=== PATIENT | male | born 1955 | race Caucasian/White ===

== ENCOUNTER 2022-12-28 09:38 | Emergency (ER) | payer MEDICARE, SELFPAY ==
[2022-12-28] VITALS (10 sets, daily range): BP systolic 135–185; BP diastolic 63–97; PULSE 75–120; RESP 15–25; TEMP 37.2; O2SAT 96–98; BMI 30.2
--- NOTE | 2022-12-28 09:49 | DI.RAD.S_ITS ---
PROCEDURE: XR CHEST 1V INDICATIONS: Shortness of breath TECHNIQUE: One view of the chest was acquired. COMPARISON: None. FINDINGS: Surgical changes and devices: None. Lungs and pleura: Lungs are clear. No pleural effusions or pneumothorax. Mediastinum: Mediastinal contours appear normal. Heart size is normal. Bones and chest wall: No suspicious bony lesions. Overlying soft tissues appear unremarkable. IMPRESSION: No acute cardiopulmonary process. Dictated by: Jayant Esquivel M.D. on 12/28/2022 at 10:54 Approved by: Jayant Esquivel M.D. on 12/28/2022 at 10:54
[2022-12-28 10:04] LABS: Add Manual Diff / Slide Review NO; Basophils Absolute Auto 100 /uL (0-100); Basophils Percent Auto 1.1 % (0-2); Eosinophils Absolute Auto 100 /uL (0-450); Hematocrit 41.3 % (41-53); Hemoglobin 14.2 g/dL (13.5-17.5); Lymphocytes Absolute Auto 2300 /uL (1100-4500); Lymphocytes Percent Auto 37.2 % (25-40); Mean Corpuscular HGB Conc 34.5 % (30-36); Mean Corpuscular Hemoglobin 31.4 PG (26-34); Mean Corpuscular Volume 91.2 fL (80-100); Monocytes Absolute Auto 800 /uL (0-900); Monocytes Percent Auto 12.1 % (3-14); Neutrophils Absolute Auto 3000 /uL (1500-7000); Neutrophils Percent Auto 47.6 % (50-75); Platelet Count 249 X10^3/uL (150-400); Red Blood Cell Count 4.53 X10^6/uL (4.5-5.9); White Blood Cell Count 6.3 X10^3/uL (4.5-11.0)
[2022-12-28 10:13] LABS: Prothrombin Time 11.4 SECONDS (10.1-12.7)
[2022-12-28 10:18] LABS: Alanine Aminotransferase 101 IU/L (<50); Albumin 4.1 g/dL (3.5-5.0); Albumin Globulin Ratio 1.2 (1.0-2.8); Alkaline Phosphatase 91 U/L (38-126); Aspartate Aminotransferase 118 IU/L (17-59); BUN Creatinine Ratio 13.3 (6-22); Bilirubin Total 1.1 mg/dL (0.2-1.3); Blood Urea Nitrogen 11 mg/dL (9-20); Calcium 8.9 mg/dL (8.4-10.2); Carbon Dioxide 25 mmol/L (22-32); Chloride 102 mmol/L (98-107); Estimated Glomerular Filt Rate > 60 mL/min (>60); Globulin 3.5 g/dL (1.7-4.1); Glucose 136 mg/dL (80-110); HEMOLYSIS < 15 (0-50); Potassium 4.6 mmol/L (3.4-5.1); Sodium 137 mmol/L (137-145); Total Protein 7.6 g/dL (6.3-8.2)
[2022-12-28 10:19] LABS: Lactate (Lactic Acid) 1.5 mmol/L (0.7-2.1)
[2022-12-28 10:29] LABS: NT-proBNP (BNP-Adult 18+) 319 pg/mL (<125); Troponin I < 0.012 ng/mL (0.01-0.034)
--- NOTE | 2022-12-28 12:49 | ED_ITS ---
HPI - Extremity Problem General Chief complaint: Extremity Problem,Nontraumatic Stated complaint: swelling in both feet,ankle and calf Time Seen by Provider: 12/28/22 11:26 Source: patient Mode of arrival: Ambulatory History of Present Illness HPI Narrative: 67-year-old male with history of insulin-dependent diabetes, hypertension, dyslipidemia and a muscle relaxer and ibuprofen intermittently. Patient presents with swelling of his bilateral lower extremities he states he is had issues on and off for 8 years but has been worse over the last few months. He went to an urgent care, referred to another facility and then ultimately landed here. Patient states he has a primary care but they are not starting until January 12 he has not appointment in place. Patient denies any chest pain or pressure no shortness of breath, no orthopnea, no fevers or chills. No nausea, no vomiting no diarrhea constipation. No urinary symptoms. Patient has not been on water pills in the past. He notes his sister is on chlorthalidone. Patient notes only surgeries were right knee scope. No known drug allergies. No tobacco he drinks 5 alcoholic drinks daily, uses THC no other illicit. Patient also notes he is had a little bit of weight loss and he has dropped his daily insulin dosing lower continues to be about 80-100 with his morning sugars. We will send a hemoglobin A1c but labs today appear appropriate with a glucose of 136. Related Data Previous Rx's Medication Instructions Recorded furosemide 40 mg tablet (Lasix) 40 mg PO DAILY #7 tabs 12/28/22 Allergies Allergy/AdvReac Type Severity Reaction Status Date / Time No Known Drug Allergies Allergy Verified 12/28/22 09:41 Review of Systems Review of Systems ROS Unobtainable: All systems reviewed & are unremarkable except as noted in HPI and below Patient History Social History Smoking Status: Unknown if ever smoked Smoking Status: Unknown if ever smoked alcohol intake frequency: 3 or more drinks per day Substance Use Type: marijuana Exam Narrative Exam Narrative: GENERAL: Alert and oriented x three, male in no acute distress. HEENT: Head normocephalic, atraumatic, EOMI, pupils reactive, face symmetric, moist mucous membranes NECK: Supple, full range of motion CARDIOVASCULAR: Regular rate and rhythm without murmurs, rubs or gallops. No JVD. RESPIRATORY: Breath sounds equal bilaterally, no wheezes rales or rhonchi. ABDOMEN: Soft, nontender. Normoactive bowel sounds all 4 quadrants. No guarding or rebound, rigidity, no mass : No CVA tenderness EXTREMITIES: Normal range of motion, mild bilateral lower extremity edema edema. Neurovascularly intact NEUROLOGICAL: Cranial nerves II through XII grossly intact. Moving all extremities SKIN: Warm, dry, no petechiae, no rashes or lesions. Initial Vital Signs Initial Vital Signs: Vital Signs Temperature 99.0 F 12/28/22 09:41 Pulse Rate 120 H 12/28/22 09:41 Respiratory Rate 16 12/28/22 09:41 Blood Pressure 185/97 H 12/28/22 09:41 Pulse Oximetry 98 12/28/22 09:41 Oxygen Delivery Method Room Air 12/28/22 09:41 Course Orders Ordered: ED Orders 12/28/22 09:49 XR chest 1V Stat EKG-12 Lead Stat 12/28/22 09:55 Complete Blood Count AUTO DIFF Stat Comprehensive Metabolic Panel Stat Hemoglobin A1C% w Est Avg Glu Stat Lactate (Lactic Acid) Stat NT-proBNP (BNP-Adult 18+) Stat Prothrombin Time INR Stat Troponin I Stat Vital Signs Vital signs: Vital Signs - 8 hr 12/28/22 09:41 12/28/22 10:02 12/28/22 10:04 Temperature 99.0 F Pulse Rate 120 H 104 H Respiratory Rate 16 24 Blood Pressure 185/97 H 143/67 H Pulse Oximetry 98 Oxygen Delivery Method Room Air 12/28/22 10:04 12/28/22 10:30 12/28/22 10:30 Temperature Pulse Rate 104 H 95 H Respiratory Rate 25 H 21 Blood Pressure 161/79 H Pulse Oximetry 97 97 Oxygen Delivery Method 12/28/22 11:00 12/28/22 11:00 12/28/22 11:30 Temperature Pulse Rate 92 H Respiratory Rate 22 Blood Pressure 147/81 H 135/63 Pulse Oximetry 98 Oxygen Delivery Method 12/28/22 11:30 12/28/22 12:00 12/28/22 12:00 Temperature Pulse Rate 86 82 Respiratory Rate 15 22 Blood Pressure 149/87 H Pulse Oximetry 98 98 Oxygen Delivery Method 12/28/22 12:30 12/28/22 12:30 Temperature Pulse Rate 75 Respiratory Rate 16 Blood Pressure 142/67 H Pulse Oximetry 97 Oxygen Delivery Method MDM - Extremity (Nontraumatic) Lab Data 12/28/22 09:55 12/28/22 09:55 Labs: Lab Results 12/28/22 12/28/22 12/28/22 Range/Units 09:55 09:55 09:55 WBC 6.3 (4.5-11.0) X10^3/uL RBC 4.53 (4.5-5.9) X10^6/uL Hgb 14.2 (13.5-17.5) g/dL Hct 41.3 (41-53) % MCV 91.2 (80-100) fL MCH 31.4 (26-34) PG MCHC 34.5 (30-36) % RDW 14.0 (11.6-14.8) % Plt Count 249 (150-400) X10^3/uL Neut % (Auto) 47.6 L (50-75) % Lymph % (Auto) 37.2 (25-40) % Upson % (Auto) 12.1 (3-14) % Eos % (Auto) 2.0 (2-4) % Baso % (Auto) 1.1 (0-2) % Neut # (Auto) 3000 (1710-0047) /uL Lymph # (Auto) 2300 (4444-0148) /uL Upson # (Auto) 800 (0-900) /uL Eos # (Auto) 100 (0-450) /uL Baso # (Auto) 100 (0-100) /uL PT 11.4 (10.1-12.7) SECONDS INR 1.0 (0.9-1.3) Sodium 137 (137-145) mmol/L Potassium 4.6 (3.4-5.1) mmol/L Chloride 102 (98-107) mmol/L Carbon Dioxide 25 (22-32) mmol/L BUN 11 (9-20) mg/dL Creatinine 0.83 (0.66-1.25) mg/dL Estimated GFR > 60 (>60) mL/min BUN/Creatinine Ratio 13.3 (6-22) Glucose 136 H (80-110) mg/dL Hemoglobin A1c (4.0-6.0) % Lactate (0.7-2.1) mmol/L Calcium 8.9 (8.4-10.2) mg/dL Total Bilirubin 1.1 (0.2-1.3) mg/dL AST 118 H (17-59) IU/L ALT 101 H (<50) IU/L Alkaline Phosphatase 91 (38-126) U/L Troponin I < 0.012 (0.01-0.034) ng/mL NT-Pro-B Natriuret Pep 319 H (<125) pg/mL Total Protein 7.6 (6.3-8.2) g/dL Albumin 4.1 (3.5-5.0) g/dL Globulin 3.5 (1.7-4.1) g/dL Albumin/Globulin Ratio 1.2 (1.0-2.8) 12/28/22 12/28/22 Range/Units 09:55 09:55 WBC (4.5-11.0) X10^3/uL RBC (4.5-5.9) X10^6/uL Hgb (13.5-17.5) g/dL Hct (41-53) % MCV (80-100) fL MCH (26-34) PG MCHC (30-36) % RDW (11.6-14.8) % Plt Count (150-400) X10^3/uL Neut % (Auto) (50-75) % Lymph % (Auto) (25-40) % Upson % (Auto) (3-14) % Eos % (Auto) (2-4) % Baso % (Auto) (0-2) % Neut # (Auto) (3319-7480) /uL Lymph # (Auto) (4362-4800) /uL Upson # (Auto) (0-900) /uL Eos # (Auto) (0-450) /uL Baso # (Auto) (0-100) /uL PT (10.1-12.7) SECONDS INR (0.9-1.3) Sodium (137-145) mmol/L Potassium (3.4-5.1) mmol/L Chloride (98-107) mmol/L Carbon Dioxide (22-32) mmol/L BUN (9-20) mg/dL Creatinine (0.66-1.25) mg/dL Estimated GFR (>60) mL/min BUN/Creatinine Ratio (6-22) Glucose (80-110) mg/dL Hemoglobin A1c 5.8 (4.0-6.0) % Lactate 1.5 (0.7-2.1) mmol/L Calcium (8.4-10.2) mg/dL Total Bilirubin (0.2-1.3) mg/dL AST (17-59) IU/L ALT (<50) IU/L Alkaline Phosphatase (38-126) U/L Troponin I (0.01-0.034) ng/mL NT-Pro-B Natriuret Pep (<125) pg/mL Total Protein (6.3-8.2) g/dL Albumin (3.5-5.0) g/dL Globulin (1.7-4.1) g/dL Albumin/Globulin Ratio (1.0-2.8) Imaging Data Chest x-ray: Radiologist's Impression: [address] [address] XRay Report Signed Patient: Amanda Grace MR#: [id number] : 1955 Acct:[id number] Age/Sex: 67 / M Date of Service: 12/28/22 Loc: ED Accession Number: [id number] ?? Procedure: XR chest 1V Ordering Provider: Kristin Orourke D.O. PROCEDURE:? XR CHEST 1V ? INDICATIONS:? Shortness of breath ? TECHNIQUE:? One view of the chest was acquired.? ? COMPARISON:? None. ? FINDINGS:? ? Surgical changes and devices:? None.? ? Lungs and pleura:? Lungs are clear.? No pleural effusions or pneumothorax.? ? Mediastinum:? Mediastinal contours appear normal.? Heart size is normal.? ? Bones and chest wall:? No suspicious bony lesions.? Overlying soft tissues appear unremarkable.? ? IMPRESSION:? No acute cardiopulmonary process. ? ? Dictated by: Jayant Esquivel M.D. on 12/28/2022 at 10:54 ? ? Approved by: Jayant Esquivel M.D. on 12/28/2022 at 10:54?? ECG Data Attestation EKG: I personally reviewed and interpreted this ECG as follows: Interpretation: Sinus tachycardia rate 113 NC 170 QRS of [address] QTC [address] No acute [address] elevation depression. MDM Narrative Medical decision making narrative: This is a 67-year-old male who presents with complaint of bilateral lower extremity swelling gradually over time. Patient has some cardiac risk factors he is had no chest pain or pressure no orthopnea. Just bilateral generalized swelling in his extremities. No other high-risk factors other than chronic alcohol use. CBC, CMP do not show acute changes. AST ALT are 118 and 101 troponins negative BNP is 310. Chest x-ray is negative with no pulmonary edema or acute changes. Patient's EKG shows tachycardia but no other acute changes. Patient and I discussed short prescription for diuretic, follow-up with primary care as this is been longstanding issue. Patient also notes his insulin has been decreased over time secondary to lowering sugars. Patient's workup is overall reassuring does not appear to be in florid heart failure do recommend that patient follow up for cardiac workup with his primary care but he notes he is had some longstanding changes that are worsening gradually over time he is not normally on a diuretic and 1 was prescribed for the short term. Patient's A1c is 5.8. Discharge Plan Departure Patient Disposition: Home Clinical Impression: Bilateral lower extremity edema Instructions: DI for Dependent Edema Activity Restrictions/Additional Instructions: Please follow-up with primary care, if you are having persistent swelling of your lower extremities they may do some additional cardiac workup or ECHO. I did order and send a [id number] for share with your primary care. Take Lasix once daily until gone. Prescription sent to [facility] in [place]. Please return for new or worsening chest pain, swelling, shortness of breath, lightheadedness or passing out, persistent vomiting or other new or concerning changes. Prescriptions: New furosemide [Lasix] 40 mg tablet 40 mg PO DAILY Qty: 7 0RF Stand Alone Forms: Patient Portal/API
[2022-12-28 13:34] LABS: Hemoglobin A1C% w Est Avg Glu 5.8 % (4.0-6.0)
== END 2022-12-28 13:43 | disposition home or self-care (01) ==
PROVIDERS: Emergency Provider Emergency Medicine
DX: R60.0 Localized edema (principal); R06.02 Shortness of breath; R00.0 Tachycardia, unspecified
CPT/HCPCS: 36415; 71045; 80053; 83036; 83605; 83880; 84484; 85025; 85610; 93005; 99283; 99284

== ENCOUNTER → 2023-01-08 09:08 | Outpatient (CLI) | payer MEDICARE, SELFPAY ==
--- NOTE | 2023-01-08 | DI.US.S_ITS ---
PROCEDURE: US ABDOMEN LIMITED INDICATIONS: ELEVATED LIVER FUNCTION TESTS TECHNIQUE: Real-time focused scanning was performed of the abdomen, with image documentation. COMPARISON: None. FINDINGS: Visualized pancreas is unremarkable sonographically. The liver is echogenic. Liver length of 16.0 cm. No gallstones, gallbladder wall thickening, or sonographic Rivers sign. Extrahepatic bile duct measures 9 mm. No intrahepatic ductal dilation demonstrated. IMPRESSION: 1. The liver is echogenic, a nonspecific finding commonly seen in the setting of steatosis. 2. Mild dilation of the extrahepatic bile duct without intrahepatic biliary ductal dilation demonstrated. This finding is of uncertain etiology or clinical significance. Correlation with the patient's symptoms and laboratory markers for evidence of biliary obstruction may be helpful. If clinically indicated, MRCP with and without contrast and/or endoscopic evaluation could be performed for further evaluation. Dictated by: Allen Bowie M.D. on 01/08/2023 at 10:08 Approved by: Allen Bowie M.D. on 01/08/2023 at 10:40
== END ==
PROVIDERS: PCP Family Medicine; Referring Provider Family Medicine; Visit Provider Family Medicine
DX: R79.89 Other specified abnormal findings of blood chemistry (principal); R60.0 Localized edema; K83.8 Other specified diseases of biliary tract
CPT/HCPCS: 76705

== ENCOUNTER → 2023-01-18 16:06 | Outpatient (CLI) | payer MEDICARE, SELFPAY ==
--- NOTE | 2023-01-18 16:08 | DI.ECHO.S_ITS ---
[facility]---------+ [facility] +---------+ : : [address] : : : : [id number] : : : : Phone: [phone] Echocardiogram Report + + :Name: KAILASH GOINS Study Date: 01/18/2023 Height: 74 in : :[facility] ReadingLocation: Weight: 222 lb : : Gender: Male BSA: 2.3 m2 : :: 1955 Age: 67 yrs BP: 140/84 mmHg: :Reason For Study: Leg Swelling : :Ordering Physician: LORA STOVER Performed By: Kiara Lowery : :Referring: LORA STOVER : + + Interpretation Summary This is a technically difficult study enhanced with Definity echocontrast. Normal sinus rhythm. Normal LV size; mild concentric LVH; normal wall motion and LV systolic function. EF is 50-55%. Normal chamber sizes. No significant valvular abnormalities. No prior study available for comparison. Procedure: A two-dimensional transthoracic echocardiogram with color flow and Doppler was performed. The study quality was technically adequate. There is no prior echocardiogram noted for this patient. A contrast injection of Definity was performed to improve assessment of LV function. The patient was in normal sinus rhythm during the exam. The patient had occasional PVCs during the exam. Left Ventricle: The left ventricle is normal in size. The ejection fraction is estimated to be 50-55%. Right Ventricle: The right ventricle is normal in size and function. Atria: The left atrial size is normal. Right atrial size is normal. There is no Doppler evidence for an interatrial shunt. Mitral Valve: The mitral valve is normal. There is no mitral valve stenosis. There is mild mitral regurgitation. Aortic Valve: The aortic valve is trileaflet. The aortic valve opens well. There is no aortic valve stenosis. There is trace aortic regurgitation. Tricuspid Valve: The tricuspid valve is normal. There is no tricuspid stenosis. There is trace tricuspid regurgitation. Pulmonic Valve: The pulmonic valve is not well visualized. There is no pulmonic valvular stenosis. There is trace pulmonic regurgitation. Great Vessels: The aortic root is borderline dilated. The ascending aorta is normal in size. The pulmonary artery is normal size. The IVC is of normal diameter and collapses greater than 50% with a sniff. This suggests a low right atrial pressure of 3 mm Hg. Pericardium/ Pleura There is no pericardial effusion. There is no pleural effusion. MMode/2D Measurements & Calculations LVIDd: 5.2 cm LVOT diam: 2.6 cm LVIDs: 2.6 cm Ao root diam: 3.8 cm FS: 50.0 % asc Aorta Diam: 3.5 cm IVSd: 1.2 cm LVPWd: 1.1 cm LV jain. diameter/BSA (cm/m^2): 2.3 LV sys. diameter/BSA (cm/m^2): 1.1 LA A2 area: 20.3 cm2 RA long axis: 5.1 cm LA A4 area: 13.4 cm2 RA area: 13.8 cm2 LA length (vol): 5.5 cm RA vol: 31.4 ml LA vol: 42.0 ml RA : 13.8 ml/m2 LA vol index: 18.5 ml/m2 RVD1 (basal): 3.9 cm LVLs ap4: 6.8 cm TAPSE_phl: 2.5 cm Doppler Measurements & Calculations Ao V2 max: 116.8 cm/sec LVOT Max Roberto: 82.7 cm/sec Ao V2 mean: 81.4 cm/sec LV V1 max P.7 mmHg Ao max P.0 mmHg LV V1 VTI: 14.9 cm Ao mean P.0 mmHg DON(I,D): 3.6 cm2 Ao V2 VTI: 22.3 cm DON(V,D): 3.8 cm2 sev ratio: 0.67 DON indexed to BSA (cm^2/m^2): 1.6 MV E max roberto: 59.3 cm/sec PA V2 max: 89.6 cm/sec MV A max rboerto: 50.6 cm/sec PA V2 mean: 60.3 cm/sec MV E/A: 1.2 PA mean P.0 mmHg Med Peak E' Roberto: 4.8 cm/sec PA pr(Accel): 27.7 mmHg E/E' med: 12.3 Lat Peak E' Roberto: 10.1 cm/sec E/E' lat: 5.9 E/e' average: 9.1 MV dec time: 0.19 sec SV(LVOT): 79.3 ml AV VR_phl: 0.71 DON(VTI)/BSA_phl: 1.6 Electronically signed by: Sophia Borges M.D. on Reading Physician:01/18/2023 11:56 PM
== END ==
PROVIDERS: PCP Family Medicine; Referring Provider Family Medicine; Visit Provider Family Medicine
DX: I34.0 Nonrheumatic mitral (valve) insufficiency (principal); R60.0 Localized edema; R79.89 Other specified abnormal findings of blood chemistry
CPT/HCPCS: 93306; Q9957

== ENCOUNTER → 2023-02-01 13:39 | Outpatient (CLI) | payer MEDICARE, SELFPAY ==
[2023-02-01 14:54] LABS: BUN Creatinine Ratio 18.8 (6-22); Blood Urea Nitrogen 15 mg/dL (9-20); Calcium 10.1 mg/dL (8.4-10.2); Carbon Dioxide 29 mmol/L (22-32); Chloride 99 mmol/L (98-107); Cholesterol 191 mg/dL (140-199); Estimated Glomerular Filt Rate > 60 mL/min (>60); Glucose 184 mg/dL (80-110); HDL Cholesterol 34 mg/dL (40-60); HEMOLYSIS < 15 (0-50); LDL Cholesterol Calculated 115 mg/dL (<100); Potassium 4.5 mmol/L (3.4-5.1); Sodium 137 mmol/L (137-145); Triglycerides 210 mg/dL (35-150)
== END ==
PROVIDERS: PCP Family Medicine; Referring Provider Family Medicine; Visit Provider Family Medicine
DX: I10 Essential (primary) hypertension (principal); E11.9 Type 2 diabetes mellitus without complications; Z79.4 Long term (current) use of insulin
CPT/HCPCS: 36415; 80048; 80061